=== PATIENT | female | born 1955 | race Asian ===

== ENCOUNTER → 2018-11-06 | Outpatient (CLI) | payer OTHER ==
[2018-11-06 12:02] LABS: HEMOGLOBIN 10.6 g/dl (12.5-16.0); MEAN CELL VOLUME 93 fl (80.0-100.0); MEAN CORPUSCULAR HEMOGLOBIN 30 pg (27.0-31.0); MEAN CORPUSCULAR HGB CONC 32 g/dl (33.0-37.0); MEAN PLATELET VOLUME 10.4 fl (7.4-10.4); PLATELET COUNT 290 K/mm3 (130-400); RED BLOOD COUNT 3.54 M/mm3 (4.10-5.30); REDCELL DISTRIBUTION WIDTH-CV 13.3 % (11.5-14.5)
[2018-11-06 12:05] LABS: HEMATOCRIT 32.9 % (37.0-47.0)
[2018-11-06 12:16] LABS: BILIRUBIN,TOTAL 0.3 mg/dL (0.0-1.0); CALCIUM 8.9 mg/dL (8.4-10.2); CHOLESTEROL RISK RATIO 4.8; CREATININE, serum 2.26 (0.52-1.25); POTASSIUM 5.2 mmol/L (3.4-5.0); TOTAL PROTEIN 7.9 gm/dL (6.4-8.2)
== END ==
LOC: COL.LAB 11:33
PROVIDERS: Internal Medicine Nephrology
DX: E11.22 Type 2 diabetes mellitus with diabetic chronic kidney disease (principal); I12.9 Hypertensive chronic kidney disease with stage 1 through stage 4 chronic kidney disease, or unspecified chronic kidney disease; N18.3 Chronic kidney disease, stage 3 (moderate); E78.5 Hyperlipidemia, unspecified

== ENCOUNTER → 2019-01-07 | Outpatient (CLI) | payer OTHER | LOC: MC.RAD 11:00 | DX: Z12.31 Encounter for screening mammogram for malignant neoplasm of breast (principal) ==